=== PATIENT | female | born 1940 | race Caucasian/White ===

== ENCOUNTER 2023-10-26 23:39 | Inpatient (IN) | payer BC ==
[~2023-10-26] VITALS: Ht 172.7 cm; Wt 87.1 kg
[2023-10-27] MEDS ORDERED: NITROGLYCERIN 0.4 MG/TAB BOTTLE ONE (00:13)
[2023-10-27] MEDS ORDERED: ASPIRIN 325 MG TABLET ONE (00:14)
[2023-10-27] MEDS: ASPIRIN 325 MG TABLET PO ONE (00:17)
[2023-10-27] MEDS: NITROGLYCERIN 0.4 MG/TAB BOTTLE SL ONE (00:18)
[2023-10-27 00:31] LABS: BASOPHILS # (AUTO) 0.1 K/uL (0.0-0.2); BASOPHILS % (AUTO) 0.5 % (0.0-2.0); EOSINOPHILS # (AUTO) 0.2 K/uL (0.0-0.7); EOSINOPHILS % (AUTO) 1.9 % (0.0-6.0); HEMATOCRIT 27 % (33-45); HEMOGLOBIN 8.7 g/dL (11.5-14.8); LYMPHOCYTES # (AUTO) 1.5 K/uL (0.8-4.8); LYMPHOCYTES % (AUTO) 12.6 % (20.0-44.0); MEAN CORPUSCULAR HEMOGLOBIN 30 PG (26.0-33.0); MEAN CORPUSCULAR HGB CONC 32 g/dl (31.0-36.0); MEAN CORPUSCULAR VOLUME 93 fL (82-100); MONOCYTES # (AUTO) 0.5 K/uL (0.1-1.30); MONOCYTES % (AUTO) 4.6 % (2.0-12.0); NEUTROPHILS # (AUTO) 9.6 K/uL (1.8-8.9); NEUTROPHILS % (AUTO) 80.4 % (43.0-81.0); PLATELET COUNT (AUTO) 338 K/uL (150-450); WHITE BLOOD COUNT (AUTO) 11.9 K/uL (4.3-11.0)
[2023-10-27 00:38] LABS: CALCIUM, SERUM 9.8 mg/dL (8.5-10.1); CARBON DIOXIDE 26 mmol/L (21-32); CHLORIDE 103 mmol/L (98-107); CREATININE 0.9 mg/dL (0.6-1.3); GLUCOSE 136 mg/dL (74-106); POTASSIUM 3.9 mmol/L (3.5-5.1); SODIUM SERUM 141 mmol/L (136-145); UREA NITROGEN, BLOOD 31 mg/dL (7-18)
[2023-10-27 00:39] LABS: INR 0.87 (0.91-1.10); PROTHROMBIN TIME 9.3 SECS (9.2-11.1)
[2023-10-27] MEDS ORDERED: IOHEXOL-350 100 ML VIAL IV ONE (00:41)
[2023-10-27] MEDS ORDERED: IV NS 0.9% 250 ML IV ONE (00:42)
[2023-10-27 01:05] LABS: ALANINE AMINOTRANSFERASE 26 U/L (12-78); ALBUMIN 3.5 g/dL (3.4-5.0); ALKALINE PHOSPHATASE 68 U/L (46-116); ASPARTATE AMINOTRANSFERASE 19 U/L (15-37); BILIRUBIN,DIRECT 0.2 mg/dL (0.0-0.2); NT-PRO BNP 778 pg/mL (0-125); TOTAL PROTEIN, SERUM 6.9 g/dL (6.4-8.2)
[2023-10-27] MEDS ORDERED: ONDANSETRON HCL/PF 4 MG/2 ML VIAL ONE (01:54)
[2023-10-27] MEDS: ONDANSETRON HCL/PF 4 MG/2 ML VIAL IV ONE (01:57)
[2023-10-27] MEDS ORDERED: AMLO-212 PO (03:33)
[2023-10-27] MEDS ORDERED: METO25TA4 PO (03:33)
[2023-10-27] MEDS ORDERED: DOCU-141 PO (03:33)
[2023-10-27] MEDS ORDERED: HYDR-3972 PO (03:33)
[2023-10-27] MEDS ORDERED: BISA-79 RC (03:33)
[2023-10-27] MEDS ORDERED: LOSA50TA39 PO (03:33)
[2023-10-27] MEDS ORDERED: ZINC220C6 PO (03:33)
[2023-10-27] MEDS ORDERED: PANT40TA49 PO (03:33)
[2023-10-27] MEDS ORDERED: ATOR40TA PO (03:33)
[2023-10-27] MEDS ORDERED: ASCO500T21 PO (03:33)
[2023-10-27] MEDS ORDERED: ACET325T53 PO (03:33)
[2023-10-27] MEDS ORDERED: ENOXAPARIN SODIUM 100 MG/ML DISP.SYRIN SQ ONE (04:46)
[2023-10-27] MEDS: ENOXAPARIN SODIUM 100 MG/ML DISP.SYRIN SQ ONE (04:54)
[2023-10-27] MEDS ORDERED: MULT-213 PO (05:05)
[2023-10-27] MEDS ORDERED: NA P133E RC (05:05)
[2023-10-27] MEDS ORDERED: SENN-261 PO (07:46)
[2023-10-27] MEDS ORDERED: MAGN400O6 PO (07:46)
[2023-10-27 08:00] VITALS: BP 132/57; TEMP 97.3; O2SAT 97
[2023-10-27] MEDS ORDERED: ACETAMINOPHEN 325 MG TABLET PO PRN (08:00)
[2023-10-27] MEDS ORDERED: NA PHOS,M-B/NA PHOS,DI-BA 1 EA ENEMA RC PRN (08:00)
[2023-10-27] MEDS ORDERED: BISACODYL (5 MG) 5 MG TABLET.DR PO PRN (08:00)
[2023-10-27] MEDS ORDERED: HYDROCODONE/APAP 5/325MG TABLET PO PRN (08:00)
[2023-10-27] MEDS ORDERED: SENNOSIDES 8.6 MG TABLET PO PRN (08:00)
[2023-10-27] MEDS ORDERED: MAGNESIUM HYDROXIDE 30 ML UDC PO PRN (08:00)
[2023-10-27] MEDS: PANTOPRAZOLE 40 MG TABLET.DR PO SCH (09:15)
[2023-10-27] MEDS: MULTIVIT W/MINERALS 1 TAB TABLET PO SCH (09:15)
[2023-10-27] MEDS: ZINC SULFATE 220 MG CAPSULE PO SCH (09:15)
[2023-10-27] MEDS: DOCUSATE SODIUM 100 MG CAPSULE PO SCH (09:16)
[2023-10-27] MEDS: LOSARTAN POTASSIUM 50 MG TABLET PO SCH (09:16)
[2023-10-27] MEDS: ASCORBIC ACID 500 MG TABLET PO SCH (09:16)
[2023-10-27] MEDS: METOPROLOL SUCCINATE 25 MG TAB.SR.24H PO SCH (09:17)
[2023-10-27] MEDS: AMLODIPINE BESYLATE 5 MG TABLET PO SCH (09:17)
[2023-10-27] MEDS ORDERED: ENOXAPARIN SODIUM 80 MG/0.8 ML DISP.SYRIN SQ SCH (09:37)
[2023-10-27 16:00] VITALS: BP 116/53; TEMP 98.9; O2SAT 96
[2023-10-27] MEDS: ATORVASTATIN 40 MG TABLET PO SCH (17:19)
[2023-10-27 20:00] VITALS: BP 120/54; TEMP 98.4; O2SAT 93
[2023-10-27] MEDS: ENOXAPARIN SODIUM 80 MG/0.8 ML DISP.SYRIN SQ SCH (20:24)
[2023-10-28] VITALS (8 sets, daily range): BP systolic 112–150; BP diastolic 51–59; TEMP 97.3–98.4; O2SAT 94–100
[2023-10-28 08:00] LABS: BASOPHILS # (AUTO) 0.1 K/uL (0.0-0.2); BASOPHILS % (AUTO) 0.7 % (0.0-2.0); EOSINOPHILS # (AUTO) 0.4 K/uL (0.0-0.7); EOSINOPHILS % (AUTO) 4.5 % (0.0-6.0); HEMATOCRIT 26 % (33-45); HEMOGLOBIN 8.3 g/dL (11.5-14.8); LYMPHOCYTES # (AUTO) 1.9 K/uL (0.8-4.8); LYMPHOCYTES % (AUTO) 22.3 % (20.0-44.0); MEAN CORPUSCULAR HEMOGLOBIN 31 PG (26.0-33.0); MEAN CORPUSCULAR HGB CONC 32 g/dl (31.0-36.0); MEAN CORPUSCULAR VOLUME 95 fL (82-100); MONOCYTES # (AUTO) 0.6 K/uL (0.1-1.30); MONOCYTES % (AUTO) 7.5 % (2.0-12.0); NEUTROPHILS # (AUTO) 5.5 K/uL (1.8-8.9); PLATELET COUNT (AUTO) 300 K/uL (150-450); RED BLOOD CELL COUNT(AUTO) 2.67 MIL/uL (4.0-5.2); RED CELL DISTRIBUTION WIDTH 14.6 % (11.5-15.0); WHITE BLOOD COUNT (AUTO) 8.4 K/uL (4.3-11.0)
[2023-10-28 08:20] LABS: CHOLESTEROL 107 mg/dL (<200); HDL CHOLESTEROL 36 mg/dL (40-60); LDL 55 mg/dL (0-99); THYROID STIMULATING HORMONE 14.606 uIU/mL (0.358-3.74); TRIGLYCERIDES 98 mg/dL (30-150)
[2023-10-28] MEDS ORDERED: DEXTROSE 50%-WATER 50 ML DISP.SYRIN IV PRN (17:30)
[2023-10-28] MEDS: ASPIRIN EC 325 MG TABLET.DR PO SCH (18:42)
[2023-10-28] MEDS: BLOOD SUGAR DIAGNOSTIC 1 EACH STRIP IN SCH (18:42)
[2023-10-28] MEDS: INSULIN REGULAR, HUMAN 100 UNIT/ML 3 ML VIAL SQ PRN (18:43)
[2023-10-29 00:39] VITALS: BP 129/55; TEMP 97.5; O2SAT 96
[2023-10-29 05:15] VITALS: BP 135/56; TEMP 97.7; O2SAT 98
[2023-10-29 07:00] VITALS: BP 152/65; TEMP 97.7; O2SAT 96
[2023-10-29] MEDS: AMLODIPINE BESYLATE 5 MG TABLET PO SCH ×2 (09:00→10:17)
[2023-10-29] MEDS: ENOXAPARIN SODIUM 40 MG/0.4 ML DISP.SYRIN SQ SCH (09:00)
[2023-10-29] MEDS: Z GUARD REMEDY 4 OZ OINT TP SCH (09:00)
[2023-10-29] MEDS: Z GUARD REMEDY 4 OZ OINT TP PRN (12:45)
[2023-10-29] MEDS: CEFTRIAXONE 1 G in IV D5W 50 ML IV SCH (12:45)
[2023-10-29 16:00] VITALS: BP 147/60; TEMP 97.5; O2SAT 100
[2023-10-29] MEDS: GLUCERNA SHAKE 237 ML CAN PO SCH (17:37)
[2023-10-29 20:00] VITALS: BP 153/54; TEMP 98.6; O2SAT 98
[2023-10-30 00:02] VITALS: BP 131/56; TEMP 97.7; O2SAT 98
[2023-10-30 04:00] VITALS: BP 127/63; TEMP 98; O2SAT 98
[2023-10-30 07:20] LABS: BASOPHILS % (AUTO) 0.6 % (0.0-2.0); EOSINOPHILS # (AUTO) 0.3 K/uL (0.0-0.7); EOSINOPHILS % (AUTO) 4.6 % (0.0-6.0); HEMATOCRIT 23 % (33-45); HEMOGLOBIN 7.8 g/dL (11.5-14.8); LYMPHOCYTES # (AUTO) 1.6 K/uL (0.8-4.8); LYMPHOCYTES % (AUTO) 20.5 % (20.0-44.0); MEAN CORPUSCULAR HEMOGLOBIN 31 PG (26.0-33.0); MEAN CORPUSCULAR HGB CONC 33 g/dl (31.0-36.0); MEAN CORPUSCULAR VOLUME 94 fL (82-100); MONOCYTES # (AUTO) 0.6 K/uL (0.1-1.30); MONOCYTES % (AUTO) 7.9 % (2.0-12.0); NEUTROPHILS % (AUTO) 66.4 % (43.0-81.0); PLATELET COUNT (AUTO) 307 K/uL (150-450); RED BLOOD CELL COUNT(AUTO) 2.48 MIL/uL (4.0-5.2); RED CELL DISTRIBUTION WIDTH 14.2 % (11.5-15.0); WHITE BLOOD COUNT (AUTO) 7.6 K/uL (4.3-11.0)
[2023-10-30 07:43] LABS: ALANINE AMINOTRANSFERASE 27 U/L (12-78); ALBUMIN 2.8 g/dL (3.4-5.0); ALKALINE PHOSPHATASE 52 U/L (46-116); ASPARTATE AMINOTRANSFERASE 30 U/L (15-37); BILIRUBIN,TOTAL 0.9 mg/dL (0.2-1.0); CALCIUM, SERUM 9.2 mg/dL (8.5-10.1); CARBON DIOXIDE 26 mmol/L (21-32); CHLORIDE 104 mmol/L (98-107); CREATININE 0.6 mg/dL (0.6-1.3); GLUCOSE 101 mg/dL (74-106); POTASSIUM 3.8 mmol/L (3.5-5.1); SODIUM SERUM 139 mmol/L (136-145); TOTAL PROTEIN, SERUM 5.6 g/dL (6.4-8.2); UREA NITROGEN, BLOOD 18 mg/dL (7-18)
[2023-10-30 08:00] VITALS: BP 133/62; TEMP 97.9; O2SAT 99
[2023-10-30 08:04] LABS: THYROID STIMULATING HORMONE 19.918 uIU/mL (0.358-3.74)
[2023-10-30 08:52] LABS: APPEARANCE,URINE CLOUDY (CLEAR); BILIRUBIN,URINE 1+ (NEGATIVE); BLOOD, URINE 3+ Ery/uL (NEGATIVE); COLOR,URINE YELLOW (YELLOW); KETONES,URINE NEGATIVE (NEGATIVE); LEUKOCYTE ESTERASE ,URINE 2+ (NEGATIVE); NITRITE, URINE POSITIVE (NEGATIVE); PH,URINE 5.5 (5.0-8.0); PROTEIN,URINE 1+ mg/dl (NEGATIVE); UGLUCOSE NEGATIVE (NEGATIVE); UROBILINOGEN,URINE 0.2 EU/dL (0.2)
[2023-10-30 09:31] LABS: ADD URINE CULTURE YES; BACTERIA,URINE Moderate /HPF (None Seen); RBC,URINE 21-50 /HPF (0-2); SQUAMOUS EPITHELIAL CELL,UR Few /HPF (None Seen); WBC,URINE 51-80 /HPF (0-3)
[2023-10-30] MEDS: LEVOTHYROXINE SODIUM 25 MCG TABLET PO SCH (10:12)
[2023-10-30 11:50] VITALS: BP 128/65; TEMP 98.1; O2SAT 98
[2023-10-30 16:00] VITALS: BP 120/51; TEMP 98.2; O2SAT 95
[2023-10-30 20:00] VITALS: BP 119/51; TEMP 98.2; O2SAT 95
[2023-10-31 07:27] LABS: BASOPHILS % (AUTO) 0.6 % (0.0-2.0); EOSINOPHILS # (AUTO) 0.4 K/uL (0.0-0.7); EOSINOPHILS % (AUTO) 5.7 % (0.0-6.0); HEMATOCRIT 24 % (33-45); LYMPHOCYTES # (AUTO) 1.5 K/uL (0.8-4.8); LYMPHOCYTES % (AUTO) 19.7 % (20.0-44.0); MEAN CORPUSCULAR HEMOGLOBIN 31 PG (26.0-33.0); MEAN CORPUSCULAR HGB CONC 33 g/dl (31.0-36.0); MEAN CORPUSCULAR VOLUME 93 fL (82-100); MONOCYTES # (AUTO) 0.7 K/uL (0.1-1.30); MONOCYTES % (AUTO) 8.8 % (2.0-12.0); NEUTROPHILS % (AUTO) 65.2 % (43.0-81.0); PLATELET COUNT (AUTO) 313 K/uL (150-450); RED BLOOD CELL COUNT(AUTO) 2.62 MIL/uL (4.0-5.2); RED CELL DISTRIBUTION WIDTH 14.4 % (11.5-15.0); WHITE BLOOD COUNT (AUTO) 7.6 K/uL (4.3-11.0)
[2023-10-31 07:30] VITALS: BP 142/86; TEMP 97.3; O2SAT 100
[2023-10-31 07:46] LABS: CALCIUM, SERUM 8.8 mg/dL (8.5-10.1); CARBON DIOXIDE 27 mmol/L (21-32); CHLORIDE 103 mmol/L (98-107); CREATININE 0.7 mg/dL (0.6-1.3); GLUCOSE 99 mg/dL (74-106); POTASSIUM 3.8 mmol/L (3.5-5.1); SODIUM SERUM 139 mmol/L (136-145); UREA NITROGEN, BLOOD 16 mg/dL (7-18)
[2023-10-31 08:14] LABS: IRON, SERUM 29 ug/dl (50-175); TOTAL IRON BINDING CAPACITY 222 ug/dl (250-450)
[2023-10-31] MEDS ORDERED: LEVO25TA7 PO (08:41)
[2023-10-31] MEDS ORDERED: CEPH500C2 PO (08:41)
[2023-10-31] MEDS ORDERED: ASPI-1420 PO (08:41)
[2023-10-31 16:00] VITALS: BP_SYST 123; BP_SYST 161; BP_DIAS 52; BP_DIAS 80; TEMP 97.7; TEMP 98.1; O2SAT 100; O2SAT 96
[2023-10-31 17:00] VITALS: BP 161/80
== END 2023-10-31 22:00 | DRG 698 ==
LOC: ER 23:54 → TELE 10-27 05:18 → MED 10-30 14:23
PROVIDERS: ADMIT Internal Medicine; ATTEND Internal Medicine
DX: T83.83XA Hemorrhage due to genitourinary prosthetic devices, implants and grafts, initial encounter (principal); I21.4 Non-ST elevation (NSTEMI) myocardial infarction; D62 Acute posthemorrhagic anemia; N39.0 Urinary tract infection, site not specified; E03.9 Hypothyroidism, unspecified; E78.5 Hyperlipidemia, unspecified; I11.0 Hypertensive heart disease with heart failure; I25.2 Old myocardial infarction; I50.9 Heart failure, unspecified; Z96.641 Presence of right artificial hip joint; Y84.9 Medical procedure, unspecified as the cause of abnormal reaction of the patient, or of later complication, without mention of misadventure at the time of the procedure; Y92.129 Unspecified place in nursing home as the place of occurrence of the external cause; Z20.822 Contact with and (suspected) exposure to COVID-19
CPT/HCPCS: 36415; 71045-TC; 76856-TC; 80048-TC; 80053-TC; 80061-TC; 80076-TC; 81001; 82607-TC; 82728-TC; 82962-TC; 83540-TC; 83735-TC; 83880; 84100-TC; 84439-TC; 84443-TC; 84481; 84484-TC; 85025-TC; 85730-TC; 86850-TC; 87086-TC; 93307-TC; 97110-TC; 97116-TC; 97530-TC; A4223; G0378; J0696; J1650; J1815; J2405; J7040; J7050; J7060; Q9967